=== PATIENT | male | born 1985 | race African-American/Black ===

== ENCOUNTER 2016-11-02 16:46 | Emergency (ER) | payer MEDICAID, OTHER ==
[~2016-11-02] VITALS: Ht 177.8 cm; Wt 75.0 kg
[2016-11-02] MEDS ORDERED: KETOROLAC 60MG/2ML VIAL IM ONE (20:45)
[2016-11-02] MEDS ORDERED: TRAMADOL 50MG TABLET PO ONE (23:00)
[2016-11-02 23:30] VITALS: BP 124/75
== END 2016-11-02 23:33 | disposition home or self-care (01) ==
LOC: ER 16:57
DX: S80.11XA Contusion of right lower leg, initial encounter (principal); S50.01XA Contusion of right elbow, initial encounter; S20.211A Contusion of right front wall of thorax, initial encounter; V19.40XA Pedal cycle driver injured in collision with unspecified motor vehicles in traffic accident, initial encounter; Y93.89 Activity, other specified; Y92.410 Unspecified street and highway as the place of occurrence of the external cause; Y99.8 Other external cause status
CPT/HCPCS: 71111; 73080; 73090; 73590; 99284; J1885